=== PATIENT | female | born 1980 | race African-American/Black ===

== ENCOUNTER 2018-12-08 16:31 | Emergency (ER) | payer MEDICAID ==
[~2018-12-08] VITALS: Ht 162.6 cm; Wt 98.0 kg
[2018-12-08 17:00] VITALS: BP 166/76
[2018-12-08 20:02] LABS: CLARITY URINE CLOUDY (CLEAR); COLOR URINE DARK YELLOW (YELLOW); KETONES URINE TRACE (NEGATIVE); LEUKOCYTE ESTERASE URINE 1+ (NEGATIVE); NITRITE URINE POSITIVE (NEGATIVE); OCCULT BLOOD URINE 3+ (NEGATIVE); PROTEIN URINE 1+ (NEGATIVE); SPECIFIC GRAVITY URINE 1.032 (1.005-1.030)
[2018-12-08 20:22] LABS: BASOPHILS % 1.7 % (0.0-2.0); EOSINOPHILS % 2.1 % (0.0-5.0); HEMATOCRIT. 34.4 % (36.0-48.0); HEMOGLOBIN. 10.8 g/dL (12.0-16.0); LYMPHOCYTES % 34.2 % (20.0-50.0); MEAN CORPUSCULAR HEMOGLOBIN 23.2 pg (28.0-32.0); MEAN CORPUSCULAR VOLUME 73.9 fL (81.0-99.0); MONOCYTES % 7.2 % (2.0-8.0); NEUTROPHILS % 54.8 % (40.0-76.0); PLATELET 384 x1000/uL (130-400); RED BLOOD CELL COUNT 4.65 mill/uL (4.2-5.4); RED CELL DISTRIBUTION WIDTH 15.2 % (11.6-14.6)
[2018-12-08 20:27] LABS: CHLORIDE 109 mEq/L (98-107)
[2018-12-14 04:16] LABS: CHLAMYDIA TRACHOMATIS NAA Negative (Negative); NEISSERIA GONORRHOEAE NAA Negative (Negative)
== END 2018-12-08 20:39 | disposition left against medical advice (07) ==
LOC: ER 16:31
DX: N39.0 Urinary tract infection, site not specified (principal); F17.200 Nicotine dependence, unspecified, uncomplicated; Z98.890 Other specified postprocedural states
CPT/HCPCS: 36415; 81025; 87491; 87591; 99283

== ENCOUNTER 2019-05-30 20:17 | Emergency (ER) | payer MEDICAID ==
[~2019-05-30] VITALS: Ht 165.1 cm; Wt 64.0 kg
[2019-05-31] MEDS ORDERED: KETOROLAC 60MG/2ML VIAL IM ONE (00:30)
[2019-05-31] MEDS ORDERED: MORPHINE SULFATE 10 MG/ML CPJ IM ONE (00:30)
[2019-05-31 03:18] VITALS: BP 123/65
== END 2019-05-31 03:35 | disposition home or self-care (01) ==
LOC: ER 20:17
DX: N61.1 Abscess of the breast and nipple (principal); I10 Essential (primary) hypertension
CPT/HCPCS: 76641; 96372; 99284; J1885; J2270